=== PATIENT | male | born 1980 | race Caucasian/White ===

== ENCOUNTER 2023-05-21 17:08 | Emergency (ER) | payer OTHER, SELFPAY ==
[2023-05-21 17:27] VITALS: BP 123/65; PULSE 82; RESP 16; TEMP 36.3; O2SAT 98
--- NOTE | 2023-05-21 17:47 | W.ED.ANIMALB ---
HPI - Animal Bite General: Chief Complaint: Animal Bite Stated Complaint: dog bite Time Seen by Provider: 05/21/23 17:17 History of Present Illness: 42-year-old male patient comes in today with a dog bite to the left knee. Patient has some superficial injuries to the knee. Some mild puncture wounds are noted. Patient appears nontoxic. Patient appears in no acute distress. Patient cannot recall his last tetanus. Patient reports that the explosive ordnance disposal specialist of the pet avoided discussion with the patient regarding vaccine. Patient discussed it with his brother and they feel that they need to get the vaccine for rabies also. Review of Systems General: Reports: 10 or more systems reviewed and unremarkable except in HPI and below Physical Exam Const: COMMON NORMALS: alert HENMT: COMMON NORMALS: normocephalic HEAD & SCALP: normocephalic Neck/C-Spine: COMMON NORMALS: full ROM Resp: COMMON NORMALS: normal respiratory effort and clear to auscultation bilaterally AUSCULTATION: clear to auscultation bilaterally Cardio: COMMON NORMALS: regular rate and regular rhythm RATE: regular rate RHYTHM: regular rhythm GI: COMMON NORMALS: Soft to palpation and non-tender PALPATION: Yes Soft to palpation Back/Pelvis: COMMON NORMALS: thoracic and lumbar spine normal to inspection Extremity: COMMON NORMALS: normal to inspection Neuro: SENSORIUM/ORIENTATION: Yes alert Skin: TRAUMA: puncture (Left knee superficial) Course Vital Signs: Vital signs: Vital Signs Temperature 97.3 F L 05/21/23 17:27 Pulse Rate 82 05/21/23 17:27 Respiratory Rate 16 05/21/23 17:27 Blood Pressure 123/65 05/21/23 17:27 Pulse Oximetry 98 05/21/23 17:27 Oxygen Delivery Me thod Room Air 05/21/23 17:27 MDM - Animal Bite Medical Decision Making 42-year-old male patient comes in today for injury sustained from a animal bite from a dog. On exam patient appears nontoxic. Patient appears no acute distress. Patient has some superficial abrasions to the left knee. Differential diagnosis includes need for prophylaxis tetanus, need for prophylaxis rabies, need for prophylactic antibiotic. Puncture wounds to the knee. Patient be placed on Augmentin. Reviewed exam with patient with recommendations for treatment for rabies. Patient opted to have rabies series given. Patient was updated on his tetanus. Patient reported understanding of care plan need for follow-up or return to the ER. No radiology studies performed this visit Discharge Plan Discharge Patient Disposition: Home Clinical Impression: Dog bite Qualifiers: Encounter type: initial encounter Qualified Code(s): W54.0XXA - Bitten by dog, initial encounter Condition: Stable Prescriptions: New amoxicillin-pot clavulanate 875-125 mg tablet 1 tab PO BID Qty: 14 0RF Discharge Orders: Discharge ED (Routine); Ordered 05/21/23 Ordered By: Torres Lackey Referrals: Alfred Whitley MD [Primary Care Provider] - Discharge Diet: Usual diet Discharge Activity: Increase activity as tolerated Patient Instructions: Rabies (ED) Activity Restrictions/Additional Instructions: You will need to return for the remainder of the rabies postexposure prophylactic plan on days 3, 7, and 14. Take oral antibiotics as directed. Follow-up with primary care for further instructions. Return to ED for new concerns. Coding Level of Care Code ED Bakery Team Member for Yelena Flores
[2023-05-21] MEDS: rabies IG 300 unit/mL SDV 1 mL 1850 UNIT INFILTRATI (18:35)
[2023-05-21] MEDS: tetanus-dipt-pertussis 0.5 mL SDV IM (18:42)
[2023-05-21] MEDS: rabies vaccine 2.5 unit SDV IM (18:42)
[2023-05-21] MEDS: amoxicillin-clav 875-125 mg Tablet 1 TAB PO (18:45)
[2023-05-21 18:51] VITALS: PULSE 84; RESP 16; O2SAT 100
== END 2023-05-21 18:53 | disposition home or self-care (01) ==
PROVIDERS: Emergency Provider Nurse Practitioner Family; PCP Family Medicine
DX: S81.052A Open bite, left knee, initial encounter (principal); W54.0XXA Bitten by dog, initial encounter; Z23 Encounter for immunization; Z29.14 Encounter for prophylactic rabies immune globulin; Z20.3 Contact with and (suspected) exposure to rabies
CPT/HCPCS: 90375; 90471; 90675; 90715; 99283

== ENCOUNTER 2023-06-04 15:30 | Oncology outpatient (recurring) (ONCR) | payer OTHER, SELFPAY ==
[2023-05-23] MEDS: rabies vaccine 2.5 unit SDV IM (11:33)
[2023-05-23 11:37] VITALS: BP 138/87; PULSE 78; RESP 16; TEMP 36.3; O2SAT 99
[2023-05-28] MEDS: rabies vaccine 2.5 unit SDV IM (15:37)
[2023-06-04] MEDS: rabies vaccine 2.5 unit SDV IM (15:41)
== END 2023-06-12 23:59 | disposition home or self-care (01) ==
PROVIDERS: PCP Family Medicine; Visit Provider Nurse Practitioner Family
DX: Z53.9 Procedure and treatment not carried out, unspecified reason (principal); Z23 Encounter for immunization; Z20.3 Contact with and (suspected) exposure to rabies; S81.052A Open bite, left knee, initial encounter; W54.0XXA Bitten by dog, initial encounter
CPT/HCPCS: 90471; 90675